=== PATIENT | female | born 1970 | race African-American/Black ===

== ENCOUNTER 2018-10-06 16:47 | Emergency (ER) | payer OTHER ==
[~2018-10-06] VITALS: Ht 162.6 cm; Wt 95.3 kg
[2018-10-06] MEDS ORDERED: AUGMENTIN 875-1 EACH PO (17:40)
[2018-10-06] MEDS ORDERED: IBUPROFEN 600600 M1 PO (17:40)
[2018-10-06 18:18] VITALS: BP 128/88
== END 2018-10-06 18:18 | disposition home or self-care (01) ==
LOC: ER 16:47
DX: S31.159A Open bite of abdominal wall, unspecified quadrant without penetration into peritoneal cavity, initial encounter (principal); S60.414A Abrasion of right ring finger, initial encounter; W50.3XXA Accidental bite by another person, initial encounter; Y93.89 Activity, other specified; Y92.89 Other specified places as the place of occurrence of the external cause; Y99.8 Other external cause status

== ENCOUNTER 2019-01-14 11:45 | Emergency (ER) | payer OTHER ==
[~2019-01-14] VITALS: Ht 162.6 cm; Wt 94.3 kg
[~2019-01-14 11:45] MED LIST: AUGMENTIN 875-1 EACH PO; IBUPROFEN 600600 M1 PO
[2019-01-14 12:06] LABS: ANION GAP 7 mmol/L (7-16); BUN 17 mg/dL (7-18); CALCIUM 8.7 mg/dL (8.5-10.1); CHLORIDE 107 mmol/L (98-107); CO2 25 mmol/L (21-32); CREATININE 0.8 mg/dL (0.6-1.0); GLUCOSE 92 mg/dL (74-106); POTASSIUM 3.2 mmol/L (3.5-5.1); SODIUM 139 mmol/L (136-145)
[2019-01-14 12:13] LABS: ABSOLUTE NEUTROPHILS 2.9 thou/uL (1.4-8.2); BASOPHILS 0.4 % (0.0-2.0); EOSINOPHILS 2.9 % (0.0-3.0); HEMOGLOBIN 13.3 gm/dL (12.0-15.0); LYMPHOCYTES 41.9 % (24.0-44.0); MCH 26.3 pg (26.0-34.0); MCHC 32.6 g/dL (28.0-37.0); MCV 80.8 fL (80.0-100.0); MONOCYTES 9.3 % (1.0-8.0); PLATELET COUNT 276 thou/uL (150-400); POLYS 45.5 % (36.0-66.0); RBC 5.07 mil/uL (4.20-5.00); RDW 14.6 % (10.5-14.5); WBC 6.4 thou/uL (4.0-11.0)
[2019-01-14 12:16] LABS: ALBUMIN 3.4 g/dL (3.4-5.0); SGOT 18 U/L (15-37); SGPT 21 U/L (30-65); TOTAL BILIRUBIN 0.3 mg/dL (<0.1-1.0); TROPONIN-I <0.06 ng/mL (<0.06)
[2019-01-14 14:15] LABS: URINE BILIRUBIN NEGATIVE (Negative); URINE BLOOD TRACE (Negative); URINE CLARITY CLEAR; URINE COLOR YELLOW; URINE GLUCOSE-RANDOM* NEGATIVE (Negative); URINE KETONES TRACE (Negative); URINE LEUKOCYTES-REFLEX NEGATIVE (Negative); URINE NITRITE-REFLEX NEGATIVE (Negative); URINE PROTEIN (DIPSTICK) NEGATIVE (Negative); URINE SPECIFIC GRAVITY 1.025 (1.005-1.035); URINE UROBILINOGEN 0.2 E.U./dl (0.2-1.0)
[2019-01-14 14:23] LABS: AMP/METHAMP Negative (Negative); BARBITURATES Negative (Negative); BENZODIAZEPINES Negative (Negative); COCAINE Negative (Negative); METHADONE Negative (Negative); OPIATES Negative (Negative); PCP Negative (Negative)
[2019-01-14] MEDS ORDERED: BUTALB-APAP-CA1 EACH PO (15:42)
[2019-01-14 15:50] VITALS: BP 148/89
--- NOTE | 2019-01-15 08:02 | EKG ---
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: [facility] : 1970 Requested By: Shari Carr Order Number: [id number] MD: Ji Keane Measurements Intervals [place] Rate: 50 P: 37 [place]: 180 QRS: 9 QRSD: 97 T: 29 QT: 433 QTc: 395 Interpretive Statements Sinus bradycardia ST elev, probable normal early repol pattern No previous ECG available for comparison Electronically Signed On 01-15-2019 8:02:24 CDT by Ji Keane [email or web address] ��������������������������������������������� <ELECTRONICALLY SIGNED> ���������������������������������������� By: Ji Keane MD, [facility] ��������������������������������������������� 01/15/19 0802 1149 1149 Ji Keane MD, FACC /EPI
== END 2019-01-14 15:56 | disposition home or self-care (01) ==
LOC: ER 11:45
PROVIDERS: Nurse Practitioner Family
DX: E87.6 Hypokalemia (principal); R55 Syncope and collapse; R53.1 Weakness; R51 Headache

== ENCOUNTER 2019-12-22 18:23 | Emergency (ER) | payer OTHER ==
[~2019-12-22] VITALS: Ht 162.6 cm; Wt 89.4 kg
[~2019-12-22 18:23] MED LIST changes: +BUTALB-APAP-CA1 EACH PO
[2019-12-22 18:59] LABS: ABSOLUTE NEUTROPHILS 6.4 thou/uL (1.4-8.2); BASOPHILS 0.7 % (0.0-2.0); HEMATOCRIT 41.6 % (37.0-47.0); HEMOGLOBIN 14.2 gm/dL (12.0-15.0); LYMPHOCYTES 17.2 % (24.0-44.0); MCH 27.4 pg (26.0-34.0); MCHC 34.1 g/dL (28.0-37.0); MCV 80.4 fL (80.0-100.0); MONOCYTES 3.5 % (1.0-8.0); PLATELET COUNT 294 thou/uL (150-400); POLYS 78.6 % (36.0-66.0); RBC 5.17 mil/uL (4.20-5.00); RDW 14.3 % (10.5-14.5); WBC 8.2 thou/uL (4.0-11.0)
[2019-12-22 19:10] LABS: ANION GAP 13 mmol/L (7-16); BUN 17 mg/dL (7-18); CHLORIDE 101 mmol/L (98-107); CO2 23 mmol/L (21-32); CREATININE 0.9 mg/dL (0.6-1.0); GLUCOSE 129 mg/dL (74-106); POTASSIUM 4.2 mmol/L (3.5-5.1); SODIUM 137 mmol/L (136-145)
[2019-12-22 19:20] LABS: ALBUMIN 3.9 g/dL (3.4-5.0); LIPASE 86 U/L (73-393); SGOT 18 U/L (15-37); SGPT 24 U/L (30-65); TOTAL BILIRUBIN 0.3 mg/dL (0.2-1.0); TOTAL PROTEIN 8.2 g/dL (6.4-8.2); TROPONIN-I <0.06 ng/mL (<0.06)
[2019-12-22] MEDS ORDERED: PEPCID20 MG PO (21:03)
[2019-12-22] MEDS ORDERED: ZOFRAN ODT4 MG PO (21:03)
[2019-12-22 21:39] VITALS: BP 100/74
--- NOTE | 2019-12-23 16:05 | EKG ---
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
== END 2019-12-22 21:40 | disposition home or self-care (01) ==
LOC: ER 18:23
PROVIDERS: Emergency Medicine
DX: K52.9 Noninfective gastroenteritis and colitis, unspecified (principal); R11.2 Nausea with vomiting, unspecified; R07.89 Other chest pain; Z79.899 Other long term (current) drug therapy

== ENCOUNTER 2019-12-24 21:17 | Emergency (ER) | payer OTHER ==
[~2019-12-24] VITALS: Ht 170.2 cm; Wt 88.9 kg
[~2019-12-24 21:17] MED LIST changes: +PEPCID20 MG PO; +ZOFRAN ODT4 MG PO
[2019-12-24 21:55] LABS: ABSOLUTE NEUTROPHILS 4.7 thou/uL (1.4-8.2); BASOPHILS 0.6 % (0.0-2.0); EOSINOPHILS 3.2 % (0.0-3.0); HEMATOCRIT 41.7 % (37.0-47.0); HEMOGLOBIN 13.8 gm/dL (12.0-15.0); LYMPHOCYTES 40.7 % (24.0-44.0); MCHC 33.1 g/dL (28.0-37.0); MCV 81.5 fL (80.0-100.0); MONOCYTES 9.3 % (1.0-8.0); PLATELET COUNT 287 thou/uL (150-400); POLYS 46.2 % (36.0-66.0); RBC 5.12 mil/uL (4.20-5.00); RDW 14.4 % (10.5-14.5); WBC 10.1 thou/uL (4.0-11.0)
[2019-12-24 21:56] LABS: CALCIUM 8.9 mg/dL (8.5-10.1); CREATININE 0.9 mg/dL (0.6-1.0); POTASSIUM 3.3 mmol/L (3.5-5.1)
[2019-12-24 22:02] LABS: TOTAL BILIRUBIN 0.3 mg/dL (0.2-1.0); TOTAL PROTEIN 7.8 g/dL (6.4-8.2)
[2019-12-25 02:45] VITALS: BP 125/88
[2019-12-25] MEDS ORDERED: PRILOSEC OTC20 MG PO (02:46)
[2019-12-25] MEDS ORDERED: REGLAN 10 MG TA10 MG PO (02:46)
--- NOTE | 2019-12-25 07:44 | EKG ---
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
== END 2019-12-25 02:55 | disposition home or self-care (01) ==
LOC: ER 21:17
PROVIDERS: Emergency Medicine
DX: R10.9 Unspecified abdominal pain (principal); R11.2 Nausea with vomiting, unspecified; R07.9 Chest pain, unspecified; Z90.711 Acquired absence of uterus with remaining cervical stump; Z90.49 Acquired absence of other specified parts of digestive tract; Z79.899 Other long term (current) drug therapy

== ENCOUNTER 2020-04-05 18:24 | Emergency (ER) | payer OTHER ==
[~2020-04-05 18:24] MED LIST changes: +PRILOSEC OTC20 MG PO; +REGLAN 10 MG TA10 MG PO
== END 2020-04-05 19:08 | disposition left against medical advice (07) ==
LOC: ER 18:24
DX: R51.9 Headache, unspecified (principal); Z53.21 Procedure and treatment not carried out due to patient leaving prior to being seen by health care provider